=== PATIENT | male | born 2000 | race Caucasian/White ===

== ENCOUNTER 2021-01-01 23:23 | Emergency (ER) | payer SELFPAY ==
[2021-01-01 23:32] VITALS: BP 153/72; PULSE 81; PULSE 89; RESP 15; RESP 18; TEMP 36.8; TEMP 36.9; O2SAT 96; BMI 35.2
--- NOTE | 2021-01-01 23:36 | DI.RAD.S_ITS ---
PROCEDURE: XR ANKLE RT MIN 3V INDICATIONS: Pain in diaz/ankle TECHNIQUE: 3 views of the ankle were acquired. COMPARISON: None. FINDINGS: Bones: No fractures or dislocations. Ankle mortise is normally aligned. No suspicious bony lesions. Soft tissues: No tibiotalar joint effusion. Achilles tendon appears normal. IMPRESSION: No trauma found. Dictated by: Philip Serna M.D. on 01/02/2021 at 8:26 Approved by: Philip Serna M.D. on 01/02/2021 at 8:27
--- NOTE | 2021-01-01 23:57 | ED.EXTPRO ---
HPI - Extremity Problem General Chief complaint: Extremity Problem,Nontraumatic Stated complaint: Ankle pain X2 weeks Time Seen by Provider: 01/01/21 23:56 Source: patient Mode of arrival: Ambulatory Limitations: no limitations History of Present Illness HPI Narrative: 20-year-old gentleman with no significant medical issues presents with 2 weeks of right medial ankle and dorsum of his foot pain. He describes no specific trauma but does note that he works a fairly active job. He has not noticed redness, warmth, swelling and he is able to bear weight. After 2 weeks it still intermittently bothering him so he comes to the ER for further evaluation. Related Data Allergies Allergy/AdvReac Type Severity Reaction Status Date / Time No Known Drug Allergies Allergy Verified 01/01/21 23:32 Review of Systems Review of Systems Narrative: Pertinent positive and negative findings as per HPI Remainder of review of systems is otherwise unremarkable for Constitutional: Fevers, chills, weakness ENT: No sore throat, neck pain, ear pain CV: Chest pain, palpitations, dyspnea on exertion Respiratory: Cough, wheeze, GI: Nausea, vomiting, diarrhea, : Dysuria, hematuria, Patient History Medical History Traumatic amputation of fingertip Social History Smoking Status: Never smoker Smoking Status: Never smoker Substance Use Type: does not use Exam Narrative Exam Narrative: General: Alert appropriate in no acute distress Respiratory: Able to speak in full sentences, no obvious respiratory distress Skin: No obvious rashes, warm and dry Neurologic: Grossly intact no obvious asymmetries or abnormalities Psych, appropriate insight and affect, cooperative left Extremity: Incidentally appreciated left middle and ring finger distal amputations. Right ankle slightly tender on the dorsum and over the Achilles tendon. There is no obvious point tenderness or edema. He has full range of motion at the ankle. Neurovascularly intact distally Initial Vital Signs Initial Vital Signs: Vital Signs Temperature 98.2 F 01/01/21 23:32 Pulse Rate 81 01/01/21 23:32 Respiratory Rate 18 01/01/21 23:32 Blood Pressure 153/72 H 01/01/21 23:32 Pulse Oximetry 96 01/01/21 23:32 Procedures Orthopedic Splinting/Casting Right ankle: Side: right Lower Extremity Injury Location: ankle Lower Extremity Immobilizer: stirrup splint Post splinting neuro exam: intact Post splinting vascular exam: intact Placed by: Provider Course Orders Ordered: ED Orders 01/01/21 23:36 XR ankle RT min 3V Stat Vital Signs Vital signs: Vital Signs - 8 hr 01/01/21 23:32 Temperature 98.4 F Pulse Rate 89 Respiratory Rate 15 Blood Pressure 153/72 H Pulse Oximetry 96 MDM - Extremity (Nontraumatic) Imaging Data X-ray ankle: Attestation: I personally reviewed and interpreted this imaging study as follows: My Impression: No fractures, no effusions MDM Narrative Medical decision making narrative: 20-year-old young man with persistent right ankle pain. No obvious trauma, no fractures. He is placed in a stirrup splint. Ibuprofen is been quite helpful for him. Recommended that he follow-up with orthopedic surgery if the ankle has not improved in the next 2 weeks. Discharge Plan Departure Patient Disposition: Home Clinical Impression: Ankle strain Qualifiers: Encounter type: initial encounter Laterality: right Qualified Code(s): S96.911A - Strain of unspecified muscle and tendon at ankle and foot level, right foot, initial encounter Instructions: DI for Ankle Sprain Activity Restrictions/Additional Instructions: Thank you for coming in today Your exam is reassuring and there are no fractures noticed on her x-ray. Continue to use the stirrup splint for stability and comfort. Using 400 mg of ibuprofen (2 [id number] pills) and 1 Tylenol every 6 hours can be very helpful in controlling pain. If you are still having significant pain after 2 weeks, I would recommend scheduling appointment with orthopedic surgeon for further evaluation
[2021-01-02 00:38] VITALS: BP 137/76; PULSE 76; RESP 18; TEMP 36.8; O2SAT 100
== END 2021-01-02 00:39 | disposition home or self-care (01) ==
PROVIDERS: Emergency Provider Emergency Medicine
DX: S96.911A Strain of unspecified muscle and tendon at ankle and foot level, right foot, initial encounter (principal)
CPT/HCPCS: 73610; 99283